=== PATIENT | female | born 1975 | race Caucasian/White ===

== ENCOUNTER 2016-06-10 13:35 | Inpatient (IN) | payer OTHER ==
[~2016-06-10] VITALS: Ht 157.5 cm; Wt 79.9 kg
[2016-06-10 15:30] VITALS: BP 115/57; PULSE 83; RESP 20
[2016-06-10 15:42] VITALS: Ht 157.5 cm; Wt 79.9 kg
[2016-06-10] MEDS ORDERED: BISACODYL (EC) 5 MG TAB PO PRN (17:00)
[2016-06-10] MEDS ORDERED: CEFTRIAXONE 1 GM/50 ML (PMX) 50 ML IVPB SCH (17:00)
[2016-06-10] MEDS ORDERED: NACL 0.9% 3 ML SYG IV SCH (17:00)
[2016-06-10] MEDS ORDERED: MAGNESIUM HYDROXIDE 30ML CUP PO PRN (17:00)
[2016-06-10] MEDS ORDERED: ONDANSETRON 4 MG INJ IV PRN (17:00)
[2016-06-10] MEDS ORDERED: HYDROCODONE/APAP (5/325) TAB PO PRN (17:00)
[2016-06-10] MEDS: SOD CHLORIDE 0.9% 1,000 ML IV SCH (17:30)
[2016-06-10 18:15] LABS: BASOPHILS % 0.1 % (0.0-2.0); EOSINOPHILS # 0.1 10^3/ul (0.0-0.5); EOSINOPHILS % 0.4 % (0.0-7.0); HEMATOCRIT 34.6 % (37.0-47.0); HEMOGLOBIN 11.9 g/dl (12.0-16.0); LYMPHOCYTES # 1.5 10^3/ul (0.8-2.9); LYMPHOCYTES % 11.3 % (15.0-51.0); MEAN CORPUSCULAR HEMOGLOBIN 29.1 pg (29.0-33.0); MEAN CORPUSCULAR HGB CONC 34.5 g/dl (32.0-37.0); MEAN CORPUSCULAR VOLUME 84.5 fl (82.0-101.0); MEAN PLATELET VOLUME 9.6 fl (7.4-10.4); MONOCYTE # 0.5 10^3/ul (0.3-0.9); MONOCYTES % 3.9 % (0.0-11.0); NEUTROPHILS % 84.3 % (39.0-77.0); PLATELET COUNT 159 10^3/UL (140-440); UNCORRECTED WBC 13.1 10^3/ul (4.8-10.8); WHITE BLOOD COUNT 13.1 10^3/ul (4.8-10.8)
[2016-06-10 18:17] LABS: CONDITION 1
[2016-06-10 18:26] LABS: ALBUMIN 3.5 g/dl (3.3-4.9)
[2016-06-10 18:27] LABS: POTASSIUM 3.4 mmol/L (3.5-5.1)
[2016-06-10 18:29] LABS: BILIRUBIN,INDIRECT 0.4 mg/dl (0-1.1); BILIRUBIN,TOTAL 0.4 mg/dl (0.2-1.3); CREATININE 0.67 mg/dl (0.44-1.00)
[2016-06-10 18:30] LABS: ALBUMIN/GLOBULIN RATIO 0.94; CALCIUM 8.1 mg/dl (8.4-10.2); MAGNESIUM 2.1 mg/dl (1.7-2.5); PHOSPHORUS 3.1 mg/dl (2.5-4.9); TOTAL PROTEIN 7.2 g/dl (6.1-8.1)
[2016-06-10] MEDS: morphine 2 MG INJ IV PRN (18:52)
[2016-06-10 19:01] LABS: THYROID STIMULATING HORMONE 2.22 MIU/L (0.465-4.680)
[2016-06-10 19:43] VITALS: BP 126/57; RESP 20
[2016-06-10] MEDS ORDERED: VITAMIN A & D 5 GM OINT PACKET TOP ONE (19:53)
[2016-06-10] MEDS: FAMOTIDINE 20 MG TAB PO SCH (20:54)
[2016-06-10 21:40] LABS: ADD UMIC YES; URINE BILIRUBIN (Dip) NEGATIVE (NEGATIVE); URINE BLOOD (Dip) 3+ (NEGATIVE); URINE COLOR YELLOW (YELLOW); URINE GLUCOSE (Dip) NEGATIVE (NEGATIVE); URINE KETONES (Dip) NEGATIVE (NEGATIVE); URINE LEUKOCYTE ESTERASE (Dip) TRACE (NEGATIVE); URINE NITRITE (Dip) NEGATIVE (NEGATIVE); URINE TOTAL PROTEIN (Dip) 2+ (NEGATIVE); URINE UROBILINOGEN (Dip) 0.2 E.U./dL (0.1-1.0)
[2016-06-10 21:47] LABS: BACTERIA,URINE MODERATE; SQUAMOUS EPITHELIAL CELL,UR MANY
[2016-06-11] MEDS: SOD CHLORIDE 0.9% 1,000 ML IV SCH ×3 (02:53→18:06)
[2016-06-11] MEDS: morphine 2 MG INJ IV PRN ×2 (03:04→13:46)
[2016-06-11 06:57] LABS: ALBUMIN 2.9 g/dl (3.3-4.9)
[2016-06-11 06:58] LABS: POTASSIUM 3.6 mmol/L (3.5-5.1)
[2016-06-11 07:00] LABS: ALBUMIN/GLOBULIN RATIO 0.8; BILIRUBIN,INDIRECT 0.3 mg/dl (0-1.1); BILIRUBIN,TOTAL 0.3 mg/dl (0.2-1.3); CALCIUM 8.1 mg/dl (8.4-10.2); CREATININE 0.61 mg/dl (0.44-1.00); TOTAL PROTEIN 6.5 g/dl (6.1-8.1)
[2016-06-11 07:05] LABS: EOSINOPHILS # 0.1 10^3/ul (0.0-0.5); EOSINOPHILS % 0.7 % (0.0-7.0); HEMATOCRIT 30.6 % (37.0-47.0); HEMOGLOBIN 10.8 g/dl (12.0-16.0); LYMPHOCYTES # 1.3 10^3/ul (0.8-2.9); LYMPHOCYTES % 13.3 % (15.0-51.0); MEAN CORPUSCULAR HEMOGLOBIN 29.7 pg (29.0-33.0); MEAN CORPUSCULAR HGB CONC 35.4 g/dl (32.0-37.0); MEAN CORPUSCULAR VOLUME 83.7 fl (82.0-101.0); MEAN PLATELET VOLUME 10.1 fl (7.4-10.4); MONOCYTE # 1.1 10^3/ul (0.3-0.9); MONOCYTES % 10.8 % (0.0-11.0); NEUTROPHIL # 7.5 10^3/ul (1.6-7.5); NEUTROPHILS % 75.2 % (39.0-77.0); PLATELET COUNT 152 10^3/UL (140-440); RED BLOOD COUNT 3.65 10^6/ul (4.20-5.40); RED CELL DISTRIBUTION WIDTH 13.2 % (11.5-14.5)
[2016-06-11 07:08] LABS: CONDITION 1
[2016-06-11 07:28] LABS: CHOL/HDL RATIO 3.6 RATIO; PHOSPHORUS 2.5 mg/dl (2.5-4.9)
[2016-06-11 08:02] VITALS: BP 136/64; RESP 18
--- NOTE | 2016-06-11 08:39 | HP ---
DATE OF ADMISSION: 06/10/2016 TIME OF EVALUATION: 1630. REASON FOR ADMISSION: Transfer from outside facility because of nephrolithiasis and right hydronephrosis. CONSULTANTS: Dr. Magan Blount, Urology. HISTORY OF PRESENT ILLNESS: This is a 40-year-old female patient with a past medical history of nephrolithiasis who denies any other significant past medical history, who went to [facility] because of right-sided flank pain, malaise, and dyspnea. The patient verbalized that she was also having dark colored urine. She has a prior history of nephrolithiasis and she was suspecting another kidney stone, and hence she started drinking large quantities of water. The patient attributes to her dyspnea secondary to fluid overload. The patient denied any fevers or chills. She denied any hematuria or dysuria. However, the patient was complaining of foul-smelling urine. She denied any nausea, vomiting, diarrhea, constipation, hematochezia, melena or hematemesis. In the emergency room at [facility], the patient was noticed to have elevated D-dimer. Consequently, the patient underwent a CT angiogram of the chest that was negative for any central or peripheral pulmonary embolism. The patient also underwent a CT scan of the abdomen and pelvis that showed mild right hydroureteronephrosis with submillimeter calculus at the ureterovesical junction with a punctate nonobstructing right renal calculi. The CT of the pelvis also showed a complex cystic mass of the left ovary, and enlarged liver. The patient was noticed to have leukocytosis. The patient's urinalysis showed 3+ leukocyte esterase, and positive nitrite with urine microscopic WBC greater than 100. The patient was treated with IV normal saline. The patient was transported to [facility] because of insurance reasons. PAST MEDICAL HISTORY: Nephrolithiasis. PAST SURGICAL HISTORY: x2, tubal surgery, adenoidectomy. HOME MEDICATIONS: None. ALLERGIES: SHELLFISH. SOCIAL HISTORY: The patient lives at home with her family. The patient is a prior smoker. Denies any use of alcohol or illicit drugs. FAMILY HISTORY: Not pertinent of the patient's history of present illness. Positive family history of nephrolithiasis. REVIEW OF SYSTEMS: A 12-point review of systems were made the review of systems were negative other than what is mentioned in history of present illness. PHYSICAL EXAMINATION: VITAL SIGNS: Temperature 97.8, pulse rate 80, respiratory rate 20, blood pressure 115/57, oxygen saturation 98% on room air. GENERAL: This is a slightly obese female patient lying in bed in no apparent distress. HEENT: Head normocephalic and atraumatic. Eyes: Anicteric sclerae. Conjunctivae clear. ENT: Nasal septum is midline. Oral mucosa is dry. NECK: Supple. No JVD noticed. RESPIRATORY: Bilaterally clear to auscultation. No adventitious breath sounds heard. No use of accessory muscles of respiration. CARDIAC: Regular rate and rhythm. No murmurs. ABDOMEN: Soft. Tenderness to touch in the right upper quadrant. No rebound tenderness or guarding. GENITOURINARY: No CVA tenderness on the right side. EXTREMITIES: No cyanosis, no clubbing, no edema. Peripheral pulses are palpable. NEUROLOGIC: The patient is awake, alert and oriented. Cranial nerves II through XII grossly intact. No focal weakness. LABORATORY AND DIAGNOSTIC DATA (From [facility]): WBC of 14.9, hemoglobin 12.6, hematocrit 37.6, platelet count 187. Sodium 134, potassium 3.5, chloride 99, carbon dioxide 26, glucose 167, BUN 10, creatinine 0.94, GFR 70, total protein 7.3, albumin 2.7, calcium 8.4, total bilirubin 1.2, AST 25, ALT 41, alkaline phosphatase 111, lipase 82, magnesium 2.1. D-dimer 1536. Urinalysis: Urine leukocyte esterase 3+. Urine nitrite positive. Urine microscopic WBC greater than 100. Chest x-ray. Normal frontal chest x-ray. CT scan of the abdomen and pelvis without contrast. Mild right hydroureteral nephrolithiasis with subcentimeter calculus of the ureterovesicular junction. Punctate nonobstructing right renal calculi. Complex cystic mass of left ovary. Enlarged fatty liver. CT angiogram of chest. Normal CT pulmonary angiogram. No evidence of pulmonary embolism, or aortic dissection, or lung infiltrate. IMPRESSION: This is a 40-year-old female patient with past medical history of nephrolithiasis who went to [facility] because of right-sided flank pain, malaise and dyspnea, who was found to have evidence of right-sided hydronephrosis and nephrolithiasis, who will be admitted here for further treatment and evaluation. ASSESSMENT AND PLAN: 1. Right pyelonephritis. The patient's CT scan of the abdomen and pelvis showed right perinephric stranding. The patient will be adequately treated with IV antibiotics. The patient will be adequately hydrated using IV fluids. 2. Nephrolithiasis. A Urology consult will be obtained. The patient will be provided with adequate pain control. The patient will be maintained on antibiotics. 3. Systemic inflammatory response syndrome with leukocytosis and febrile illness. Probably secondary to #1. Hurtado cultures will be obtained. The patient will be started on empiric antibiotics. 4. Obesity. BMI of 32.2 kg/m2. A fasting lipid panel will be obtained. A hemoglobin A1c will be obtained. The patient will be advised on weight reduction. 5. Complex cystic left ovarian mass, etiology unclear. We will obtain a pelvic ultrasound to further evaluate this. Plan. The patient will be admitted to inpatient medical/surgical floor. The patient will be started on a regular diet. The patient will be started on DVT prophylaxis and gastrointestinal prophylaxis. The patient will remain a FULL CODE. Activities will be as tolerated. The rest of the patient's management will be based on the clinical course, the results of diagnostic studies, and inputs from the consultants. Based on the patient's clinical presentation, she most probably requires at least one midnight's stay for further management and evaluation of her clinical presentation. The case and management of this patient was fully discussed with Dr. Dolan. Approximately 50 minutes was spent on the history and physical of this patient. JUAN FRANCISCO DOLAN MD, AM/BETH Conf#: [id number] DID#: [id number] MTDD
[2016-06-11] MEDS: FAMOTIDINE 20 MG TAB PO SCH ×2 (08:53→20:04)
--- NOTE | 2016-06-11 09:32 | RADRPT ---
PROCEDURE: US Pelvis. CLINICAL INDICATION: abdominal pain TECHNIQUE: Multiple sonographic images of the pelvis were obtained utilizing a transabdominal and endovaginal technique. The images were reviewed on a PACS workstation. COMPARISON: None. FINDINGS: The uterus is visualized and measures 7.9 x 4.7 x 5.7 cm in size. The endometrial echo complex is n ormal and measures 7 mm. There is no evidence for free fluid. The right ovary is not visualized. . The left ovary has a normal echotexture and measures 5.8 x 4.4 x 2.5 cm in size with a adjacent ovar jorge l cysts measuring 2.6 and 2.7 cm in greatest dimensions. Normal left ovarian blood flow . No adnex al masses are noted. IMPRESSION: 1. The right ovary was not visualized. The left ovary demonstrates 2 adjacent cysts with the large st measuring 2.7 cm in greatest dimension. 2. The remaining intrapelvic contents are unremarkable. RPTAT:AAJJ Physician Lucas Date Time Electronically viewed and signed by Physician Lucas on 06/11/2016 09:32 SCHUYLER/
--- NOTE | 2016-06-11 09:34 | RADRPT ---
PROCEDURE: XR Abdomen. CLINICAL INDICATION: SBO TECHNIQUE: AP abdomen x-ray. COMPARISON: None. FINDINGS: The bowel gas pattern is normal. There is no evidence of free air or obstruction. 3 x 6 mm calculus overlying the right UVJ. Correlate with clinical presentation and or CT findings. There are no abno rmal calcifications overlying the urinary tracts. The osseus structures are unremarkable. IMPRESSION: 1. Right 6 x 3 mm calcification overlying the ureterovesicular junction. Correlate clinically for obstructing calculus. Rule RPTAT:AAJJ Steve Todd Physician Date Time Electronically viewed and signed by Physician Lucas on 06/11/2016 09:34 SCHUYLER/
[2016-06-11] MEDS: CEFTRIAXONE 1 GM/50 ML (PMX) 50 ML IVPB SCH (09:56)
--- NOTE | 2016-06-11 12:20 | PN ---
Date/Time of Note Date/Time of Note DATE: 06/11/16 TIME: 12:20 Assessment/Plan VTE Prophylaxis VTE Prophylaxis Intervention: SCD's Lines/Catheters IV [facility]ter Type (from [facility]): Peripheral IV Urinary Cath still in place: No Assessment/Plan Chief Complaint/Hosp Course 1. Right pyelonephritis. The patient's CT scan of the abdomen and pelvis showed right perinephric stranding. Continue antibiotics. Urine culture negative so far. Continue IV hydration. 2. Nephrolithiasis. Appreciate urology recommendations. Continue pain control. Continue IV hydration. 3. Systemic inflammatory response syndrome with leukocytosis and fever. Most probably secondary to #1. Hurtado cultures pending. Continue empiric antibiotics. 4. Obesity. BMI of 32.2 kg/m2. Will advise weight reduction. 5. Multiple left ovarian cyst. Needs outpatient follow-up. 6. Fluids, electrolytes, and nutrition. Regular diet as tolerated. Continue IV fluids. 7. DVT prophylaxis. Bilateral sequential compression devices. 8. Gastrointestinal prophylaxis. Histamine 2 receptor blockers. 9. Plan. Continue pain control. Continue IV hydration. Continue antibiotics. Await further recommendations from urology. Case discussed with Dr. Puente. Problems: Subjective 24 Hr Interval Summary Free Text/Dictation Had a febrile episode in the AM. Complains of abdominal pain. Exam/Review of Systems Vital Signs Vitals Vital Signs Date Time Temp Pulse Resp B/P Pulse Ox O2 Delivery O2 Flow Rate FiO2 06/11/16 08:02 98.5 105 18 136/64 97 06/10/16 15:30 Room Air Intake and Output 06/10/16 06/10/16 06/11/16 14:59 22:59 06:59 Intake Total 500 ml 1500 ml Balance 500 ml 1500 ml Exam GENERAL: This is a slightly obese female patient lying in bed in no apparent distress. HEENT: Head normocephalic and atraumatic. Eyes: Anicteric sclerae. Conjunctivae clear. ENT: Nasal septum is midline. Oral mucosa is dry. NECK: Supple. No JVD noticed. RESPIRATORY: Bilaterally clear to auscultation. No adventitious breath sounds heard. No use of accessory muscles of respiration. CARDIAC: Regular rate and rhythm. No murmurs. ABDOMEN: Soft. Tenderness to touch in the right upper quadrant. No rebound tenderness or guarding. GENITOURINARY: No CVA tenderness on the right side. EXTREMITIES: No cyanosis, no clubbing, no edema. Peripheral pulses are palpable. NEUROLOGIC: The patient is awake, alert and oriented. Cranial nerves II through XII grossly intact. No focal weakness. Results Result Diagram: 06/11/16 0508 06/11/16 0508 Results 24 hrs Laboratory Tests Test 06/10/16 17:40 06/10/16 18:22 06/11/16 05:08 Alanine Aminotransferase (ALT/SGPT) 49 52 Albumin 3.5 2.9 L Albumin/Globulin Ratio 0.94 0.80 Alkaline Phosphatase 134 H 129 H Anion Gap 17 H 12 Aspartate Amino Transf (AST/SGOT) 30 28 Basophils # 0.0 0.0 Basophils % 0.1 0.0 Blood Urea Nitrogen 10 9 Calcium Level 8.1 L 8.1 L Carbon Dioxide Level 25 25 Chloride Level 101 104 Creatinine 0.67 0.61 Direct Bilirubin 0.00 0.00 Eosinophils # 0.1 0.1 Eosinophils % 0.4 0.7 Free Thyroxine 0.84 Globulin 3.70 H 3.60 H Glucose Level 173 152 Hematocrit 34.6 L 30.6 L Hemoglobin 11.9 L 10.8 L Hemoglobin A1c 5.5 Indirect Bilirubin 0.4 0.3 Lactic Acid Level 2.5 H 1.1 Lymphocytes # 1.5 1.3 Lymphocytes % 11.3 L 13.3 L Magnesium Level 2.1 2.0 Mean Corpuscular Hemoglobin 29.1 29.7 Mean Corpuscular Hemoglobin Concent 34.5 35.4 Mean Corpuscular Volume 84.5 83.7 Mean Platelet Volume 9.6 10.1 Monocytes # 0.5 1.1 H Monocytes % 3.9 10.8 Neutrophils # 11.0 H 7.5 Neutrophils % 84.3 H 75.2 Nucleated Red Blood Cells # 0.0 0.0 Nucleated Red Blood Cells % 0.0 0.0 Phosphorus Level 3.1 2.5 Platelet Count 159 152 Potassium Level 3.4 L 3.6 Red Blood Count 4.10 L 3.65 L Red Cell Distribution Width 13.0 13.2 Serum HCG, Qualitative NEGATIVE Sodium Level 140 137 Thyroid Stimulating Hormone (TSH) 2.220 Total Bilirubin 0.4 0.3 Total Protein 7.2 6.5 White Blood Count 13.1 H 10.0 # Urine Bacteria MODERATE Urine Bilirubin NEGATIVE Urine Clarity CLEAR Urine Color YELLOW Urine Glucose NEGATIVE Urine Hemoglobin 3+ H Urine Ketones NEGATIVE Urine Leukocyte Esterase TRACE H Urine Microscopic RBC 10-25 Urine Microscopic WBC >50 Urine Nitrite NEGATIVE Urine Specific Perry 1.020 Urine Squamous Epithelial Cells MANY Urine Total Protein 2+ H Urine Urobilinogen 0.2 E.U./dL Urine pH 6.0 Cholesterol Level 84 L Cholesterol/HDL Ratio 3.6 HDL Cholesterol 23 L LDL Cholesterol, Calculated 44 Triglycerides Level 83 Medications Medications Current Medications Influenza Virus Vaccine 0.5 ml 0.5 ml ONCE ONCE IM* ; Start 06/12/16 at 09:00; Stop 06/12/16 at 09:01 Sodium Chloride 1,000 ml @ 125 mls/hr Q8H IV Last administered on 06/11/16 10 :03; Admin Dose 125 MLS/HR; Start 06/10/16 at 16:36 Ceftriaxone Sodium (Rocephin) 50 ml @ 100 mls/hr Q24H IVPB Last administered on 06/11/16 09:56; Admin Dose 100 MLS/HR; Start 06/11/16 at 10:00 Ondansetron HCl (Zofran Inj) 4 mg Q6H PRN IV NAUSEA AND/OR VOMITING; Start at 17:00 Acetaminophen (Tylenol Tab) 650 mg Q6H PRN PO PAIN LEVEL 1-3 OR FEVER; Start at 17:00 Acetaminophen/ Hydrocodone Bitart ([place] (5/325)) 1 tab Q6H PRN PO MODERATE PAIN LEVEL 4-6; Start 06/10/16 at 17:00 Morphine Sulfate (morphine) 2 mg Q4H PRN IV SEVERE PAIN LEVEL 7-10 Last administered on 06/11/16 03:04; Admin Dose 2 MG; Start 06/10/16 at 17:00 Magnesium Hydroxide (Milk Of Mag) 30 ml DAILY PRN PO CONSTIPATION; Start at 17:00 Bisacodyl (Dulcolax) 5 mg DAILY PRN PO CONSTIPATION; Start 06/10/16 at 17:00 Famotidine (Pepcid) 20 mg Q12 PO Last administered on 06/11/16 08:53; Admin Dose 20 MG; Start 06/10/16 at 21:00 JUAN FRANCISCO ROSARIO NP Jun 11, 2016 12:20
[2016-06-11 19:28] VITALS: BP 140/89; RESP 20
[2016-06-11] MEDS ORDERED: TAMSULOSIN (SR) 0.4 MG CAP PO ONE (19:30)
--- NOTE | 2016-06-11 20:31 | CONS ---
DATE OF ADMISSION: 06/10/2016 DATE OF CONSULTATION: 06/11/2016 REQUESTING PHYSICIAN: Mario Alberto Puente MD Dear Dr. Puente: Thank you for asking me to see this patient in urological consultation. HISTORY OF PRESENT ILLNESS: This is a 40-year-old female who initially presented to [facility] complaining of right flank pain, and the patient underwent a CT scan of the abdomen and pelvis over there, and that showed a 7 mm stone at the right ureterovesical junction, and because of insura nce reasons, the patient was transferred to [facility] for further care. The patient state s that she had no nausea or vomiting, no diarrhea, no constipation, but she passed a big kidney ston e about 6 years ago. She is a 2, para 2, two C-sections. ALLERGIES: THE PATIENT IS ALLERGIC TO SHELLFISH. SOCIAL HISTORY: She does not smoke. She was a smoker before. She does not drink any alcohol, and there is no history of drug abuse. FAMILY HISTORY: There is a family history of kidney stones, and she just lost her mother, and her m other had kidney stones. PAST MEDICAL HISTORY: There is no other medical history. The patient at the present feels like when she has the urge to urinate, she urinates a lot of urine, and then a few minutes later she urinates a lot of urine as well. PHYSICAL EXAMINATION: GENERAL: A 40-year-old female. She weighs 79.9 kg. She is 62 inches tall. VITAL SIGNS: Her temperature is 98.5, respiration is 18, pulse is 105, the blood pressure 135/64. HEAD AND NECK: Unremarkable. There is no cervical adenopathy. ABDOMEN: She is tender in the right lower quadrant and more sensitive in the right flank area when compared to the left side. There is no abdominal mass palpable. GENITOURINARY: The patient does have her period at the present time, so no pelvic exam was done. MEDICATIONS: The medications that she is on include: 1. Ceftriaxone. 2. Pepcid. 3. Zofran p.r.n. 4. Albertson p.r.n. 5. Morphine p.r.n. 6. Milk of magnesia p.r.n. 7. Dulcolax p.r.n. LABORATORY DATA: Her CBC shows a white count of 10.0; on admission it was 13.1. Hemoglobin 10.8. The BUN is 9, creatinine 0.61. Electrolytes are normal. The serum hCG is negative. Urinalysis is more than 50 WBCs, 10 to 25 RBCs, 3+ occult blood. Urine culture: No growth in 24 hours. I did order earlier online a KUB for her, and that was done, and the radiologist read it as a 6 x 3 mm calcification overlying the right ureterovesicular junction, and that is probably the stone that she has. Also patient had pelvic ultrasound, and the right ovary was not visualized. The left ovary demonstr ates 2 adjacent cysts with the largest 2.7 cm in greatest dimension. The remaining intrapelvic cont ents are unremarkable. IMPRESSION: Distal right ureteral stone measuring about 7 mm in size. PLAN: Strain her urine and give her pain medications and also I would put her on Flomax as well and will try to schedule her for tomorrow for cystoscopy and ureteroscopy, laser lithotripsy and remova l of the stone and insertion of a JJ stent. I explained the procedure to her, the benefits, the ris ks and the alternative treatment. The patient is concerned that she does have her children with her ex-, and the children have to be driven to school, and she has nobody else to help her, and she was even asking whether she could go home, and I told her she could go home, but also she has to do arrangements for moving before 06/21 from her condo, so I told her basically what we could do is try to get the stone out so she could get back to her normal life, but she will have to have a JJ s tent, and that would usually be left for about 3 days, and if she wants to go home, she may be able to go home, but then we do not know what time she will have pain again, and she will end in the ronald gency room, and that could happen even in the middle of whatever things she has to do. At the end, I will try to schedule her, and hopefully we could take care of the stone tomorrow for her, and then she could be discharged after that. Dictated By: LILIA WARD/BETH Conf#: [id number] DID#: [id number]
[2016-06-11] MEDS: ACETAMINOPHEN 325 MG TAB PO PRN (21:57)
[2016-06-12] MEDS: SOD CHLORIDE 0.9% 1,000 ML IV SCH ×2 (05:46→08:36)
[2016-06-12 05:58] LABS: BASOPHILS % 0.3 % (0.0-2.0); EOSINOPHILS # 0.2 10^3/ul (0.0-0.5); EOSINOPHILS % 2.7 % (0.0-7.0); HEMATOCRIT 31.8 % (37.0-47.0); HEMOGLOBIN 10.9 g/dl (12.0-16.0); LYMPHOCYTES # 1.7 10^3/ul (0.8-2.9); LYMPHOCYTES % 27.5 % (15.0-51.0); MEAN CORPUSCULAR HEMOGLOBIN 29.2 pg (29.0-33.0); MEAN CORPUSCULAR HGB CONC 34.5 g/dl (32.0-37.0); MEAN CORPUSCULAR VOLUME 84.6 fl (82.0-101.0); MEAN PLATELET VOLUME 9.8 fl (7.4-10.4); MONOCYTE # 0.7 10^3/ul (0.3-0.9); MONOCYTES % 12.1 % (0.0-11.0); NEUTROPHIL # 3.5 10^3/ul (1.6-7.5); NEUTROPHILS % 57.4 % (39.0-77.0); PLATELET COUNT 150 10^3/UL (140-440); RED BLOOD COUNT 3.75 10^6/ul (4.20-5.40); RED CELL DISTRIBUTION WIDTH 13.3 % (11.5-14.5); UNCORRECTED WBC 6.1 10^3/ul (4.8-10.8); WHITE BLOOD COUNT 6.1 10^3/ul (4.8-10.8)
[2016-06-12 06:03] LABS: CONDITION 1
[2016-06-12 06:07] LABS: POTASSIUM 3.4 mmol/L (3.5-5.1)
[2016-06-12 06:09] LABS: CREATININE 0.57 mg/dl (0.44-1.00)
[2016-06-12 06:10] LABS: CALCIUM 8.6 mg/dl (8.4-10.2); INR 0.99; PROTIME 13.1 Sec (12.2-14.2)
[2016-06-12 06:11] LABS: PARTIAL THROMBOPLASTIN TIME 38.3 Sec (25.0-35.0)
[2016-06-12 06:15] LABS: MAGNESIUM 1.9 mg/dl (1.7-2.5)
[2016-06-12 06:16] LABS: PHOSPHORUS 2.8 mg/dl (2.5-4.9)
[2016-06-12 07:35] VITALS: BP 133/89; RESP 20
[2016-06-12] MEDS: FAMOTIDINE 20 MG TAB PO SCH (08:10)
[2016-06-12] MEDS: ACETAMINOPHEN 325 MG TAB PO PRN (08:10)
[2016-06-12] MEDS ORDERED: INFLUENZA VIRUS VACCINE 0.5 ML SYG IM* ONE (09:00)
--- NOTE | 2016-06-12 09:58 | RADRPT ---
PROCEDURE: XR Abdomen. CLINICAL INDICATION: Right ureteral calculus. TECHNIQUE: AP abdomen x-ray. COMPARISON: KUB 06/11/2016 FINDINGS: The bowel gas pattern is normal. There is no evidence of free air or obstruction. Stable appearance of 6 x 3 mm calcification proximal to the right UVJ. Compatible with known renal stone. CT correla tion is recommended. The osseus structures are unremarkable. IMPRESSION: 1. Stable position of right UVJ calculus. RPTAT:AAJJ Steve Todd Physician Date Time Electronically viewed and signed by Steve Todd Physician on 06/12/2016 09:57 SCHUYLER/
[2016-06-12] MEDS: CEFTRIAXONE 1 GM/50 ML (PMX) 50 ML IVPB SCH (10:10)
[2016-06-12] MEDS ORDERED: TAMSULOSIN (SR) 0.4 MG CAP PO SCH (21:00)
--- NOTE | 2016-06-13 11:31 | DS ---
DATE OF ADMISSION: 06/10/2016 DATE OF DISCHARGE: 06/12/2016 ____ Left against medical advice. ADMITTING DIAGNOSES: 1. Right pyelonephritis. 2. Nephrolithiasis. 3. Systemic inflammatory response syndrome with leukocytosis and fever. 4. Obesity. 5. Left ovarian cyst. CONSULTATIONS: Dr. Magan Blount, neurology. HOSPITAL COURSE: This is a 40-year-old female patient with past medical history of nephrolithiasis who denies any other significant past medical history who went to [facility] and [facility] because of right-sided flank pain, malaise and dyspnea. The patient verbalized that she was daniels ving dark-colored urine. She has a prior history of nephrolithiasis and she was suspecting another kidney stone and hence she started drinking large quantities of water. The patient attributes her d yspnea secondary to fluid overload. The patient denied any fevers or chills. She denied any hematu umm or dysuria. However, the patient was complaining of foul-smelling urine. She denied any nausea , vomiting, diarrhea, constipation, hematochezia, melena, or hemetemesis. In the emergency room at [facility], the patient was noticed to have elevated D-dimer. Consequently, the patient u nderwent a CT angiogram of the chest that was negative for any central or peripheral pulmonary embol ism. The patient also underwent a CT scan of the abdomen and pelvis that showed mild right hydroure teronephrosis with a subcentimeter calculus at the ureterovesical junction with punctate nonobstruct ing right renal calculi. The patient's urinalysis showed 3+ leukocyte esterase and positive nitrite with microscopic WBCs greater than 100. The patient was transferred to [facility] because of insurance purposes. The patient was admitted to inpatient medical/surgical floor. The patient was started on a regular diet. The patient was started on empiric antibiotics. Pancultures were ordered. A urology consult was obtained. Urology evaluated the patient. The patient underwent an abdominal x-ray that showed right ureterovesical junction 6 x 3 mm calcification. Hence, urology recommended a cystoscopy; how ever, the patient did not want to stay further in the hospital stating that she has to take care of her family. The patient left the hospital against medical advice. The patient was informed about t he consequences of leaving the hospital against medical advice including the possibility of . Nevertheless, the patient left the hospital against medical advice. No discharge planning was done since the patient left the hospital against medical advice. PERTINENT LABORATORY AND DIAGNOSTIC DATA: 1. Pelvic ultrasound: The right ovary was not visualized. The left ovary demonstrates 2 adjacent cysts with the largest measuring 2.7 cm in greatest dimension. The remaining intrapelvic contents a re unremarkable. 2. Abdominal x-ray on 06/11/2016: Right 6 x 3 mm calcification overlying the ureterovesical juncti on. 3. A repeat abdominal x-ray on 06/12/2016: Stable position of the UVJ calculus. 4. Blood culture x2 negative. 5. Urine culture x1 negative. 6. Latest CBC: WBC 6.1, hemoglobin ____, hematocrit ____, platelet count 150. 7. Latest BMP: Sodium ____, potassium 3.4, chloride 106, carbon dioxide 29, anion gap 13, BUN 7, c reatinine ____, glucose 100, calcium 8.6. ____ 2.8, magnesium 1.9. 8. Hemoglobin A1c 5.5. 9. Fasting lipid panel: Triglycerides 83, total cholesterol 84, LDL 44, HDL 23. At this time, I would like to thank Dr. Blount for seeing the patient and providing clinical recomm endations. The case and management of this patient was fully discussed with Dr. Dolan. Dictated By: JUAN FRANCISCO ROSARIO COMMERCIAL UNDERWRITER for TRES DOLAN MD, AM/NTS Conf#: [id number] DID#: [id number]
== END 2016-06-12 13:40 | disposition left against medical advice (07) | DRG 690 ==
LOC: PP2 15:09
PROVIDERS: ADMIT Family Medicine; ATTEND Family Medicine
DX: N12 Tubulo-interstitial nephritis, not specified as acute or chronic (principal); R65.10 Systemic inflammatory response syndrome (SIRS) of non-infectious origin without acute organ dysfunction; N20.0 Calculus of kidney; E66.9 Obesity, unspecified; Z68.32 Body mass index [BMI] 32.0-32.9, adult; N83.202 Unspecified ovarian cyst, left side; R00.0 Tachycardia, unspecified
CPT/HCPCS: 74000; 76830; 76856; 80048; 80053; 80061; 81001; 81003; 83036; 83605; 83735; 84100; 84439; 84443; 84703; 85025; 85610; 85730; 87040; 87081; 87086; 90686; J0696; J2270; J7030

== ENCOUNTER 2017-05-03 10:13 | Day surgery (SDC) | payer OTHER ==
[~2017-05-03] VITALS: Ht 157.5 cm; Wt 88.1 kg
[2017-05-03] VITALS (14 sets, daily range): BP systolic 138–205; BP diastolic 68–98; PULSE 78–102; RESP 16–22; Ht 157.5 cm; Wt 88.1 kg
[~2017-05-03 10:13] MED LIST: CEFAZOLIN 1 GM/50 ML (PMX) 50 ML IVPB SCH
[2017-05-03] MEDS ORDERED: CEFTRIAXONE 1 GM/NS 50 ML IVPB ONE (11:00)
[2017-05-03] MEDS ORDERED: AMLO-147 PO (11:09)
[2017-05-03] MEDS ORDERED: SERT50TA PO (11:09)
[2017-05-03] MEDS ORDERED: IOHEXOL 300MG/ML 30 ML BTL ONE (12:05)
--- NOTE | 2017-05-03 12:31 | HPN ---
Date/Time of Note Date/Time of Note DATE: 05/03/17 TIME: 12:31 Interval H&P Admission Note Pt. seen H&P reviewed: No system changes LILIA RIVAS MD May 03, 2017 12:31
[2017-05-03] MEDS ORDERED: MIDAZOLAM 1 MG/ML 2 ML INJ ONE (12:38)
[2017-05-03] MEDS ORDERED: morphine 10 MG INJ ONE (14:31)
[2017-05-03] MEDS ORDERED: LIDOCAINE 2% (SDV) 5 ML INJ ONE (14:56)
[2017-05-03] MEDS ORDERED: ONDANSETRON 4 MG INJ ONE (14:56)
[2017-05-03] MEDS ORDERED: ROCURONIUM 50 MG INJ ONE (14:56)
[2017-05-03] MEDS ORDERED: PROPOFOL 20 ML ONE (14:56)
[2017-05-03] MEDS ORDERED: HYDROCODONE/APAP (5/325) TAB PO PRN (15:00)
--- NOTE | 2017-05-03 15:09 | OPR ---
Date/Time of Note Date/Time of Note DATE: 05/03/17 TIME: 15:00 Operative Report Procedure Date: May 03, 2017 Preoperative Diagnosis Retained right ureteral JJ stent with calcification on the proximal curl in the kidney and a very large calcification, over 3 cm in size, on the distal curl in the bladder Postoperative Diagnosis Retained right ureteral JJ stent with calcification on the proximal curl in the kidney and a very large calcification, over 3 cm in size, on the distal curl in the bladder Operation/Procedure Performed Right extracorporeal shockwave lithotripsy to the proximal curl of the JJ stent in the right kidney ,cystolitholopaxy to the larger stone on the distal curl of the stent in the bladder, removal and replacement of right ureteral JJ stent, 6 Turkmen by 22 cm long Surgeon see signature line Wall Worker None Anesthesia Type: general Anesthesiologist: SHADIA VAUGHN MD Estimated Blood Loss: 0 - 10 ml's Transfusion none Specimen Fragments of bladder stones, urine from the bladder for culture and sensitivity , old JJ stent Grafts/Implants none Complications none Pt Condition Post Procedure: stable Disposition: PACU Indications Retained right ureteral JJ stent with calcification on the proximal curl in the kidney and a very large calcification, over 3 cm in size, on the distal curl in the bladder Procedure Description Patient was brought to the operating room. She was given general anesthesia and positioned in the supine position on the lithotripsy machine table. Timeout was done ,the patient was identified by her name, her birthdate and the procedure and the side of the procedure. The patient was given 1 g of ceftriaxone IV at the start of the procedure. Then the patient was positioned so the proximal curl of the JJ stent in the kidney is visualized on both screens of the lithotripsy machine. Then the electromagnetic shockwaves were delivered to the curl of the JJ stent. The position was rechecked irregularly and a total of 2400 shockwaves were given. The energy started from 2 and went up to 7. Once the ESWL was done the patient was repositioned in the lithotomy position then another timeout was done and the patient genital area was prepped and draped in the usual sterile manner. #21 Turkmen cystoscope sheath was introduced into the bladder and the distal curl of the JJ stent was visualized and it was all covered by a very large stone measuring over 3 cm in size. Then I used [id number] micron holmium laser fiber and broke the stone of the curl of the JJ stent. All the stone fragments were then irrigated out of the bladder and once there were no more stones and under fluoroscopy I grasped the distal end of the JJ stent and pulled it out while looking at the proximal curl in the kidney under fluoroscopy. The proximal curl did straighten up and I was able to pull the JJ stent intact. Then I reintroduced the cystoscope and made sure that there were no more stone fragments inside the bladder. I cannulated the right ureteral orifice and passed a 0.[address] up to the kidney and on the zip wire I advanced a 6 Turkmen by 22 cm long JJ stent. I had its proximal and curling into the kidney and the distal end curling into the bladder. The patient was then transferred to the recovery room in a stable and satisfactory condition. LILIA RIVAS MD May 03, 2017 15:09
[2017-05-03] MEDS ORDERED: hydrALAzine 20 MG INJ IV PRN (15:30)
[2017-05-03] MEDS ORDERED: LABETALOL HCL 20MG INJ IV PRN (15:30)
[2017-05-03] MEDS ORDERED: DIPHENHYDRAMINE 50 MG INJ IV PRN (15:30)
[2017-05-03] MEDS ORDERED: MEPERIDINE 25 MG INJ IV PRN (15:30)
[2017-05-03] MEDS ORDERED: HYDROmorphONE (0.2 MG/ML) 10ML SYG IV PRN ×2 (15:30)
[2017-05-03] MEDS ORDERED: FENTAnyl 50 MCG/ML VIAL IV PRN (15:30)
[2017-05-03] MEDS ORDERED: ONDANSETRON 4 MG INJ IV PRN (15:30)
--- NOTE | 2017-05-03 15:57 | RADRPT ---
PROCEDURE: X-ray fluoroscopy guidance CLINICAL INDICATION: Right ureteral stent placement. Fluoroscopic guidance. TECHNIQUE: Fluoroscopic guidance was utilized for an intraoperative procedure. COMPARISON: None available FINDINGS: Fluoroscopic guidance was utilized for and intraoperative procedure. 69.6 seconds of fluoroscopy palma e was utilized for the procedure. 8 x-ray images were obtained during the procedure in progress. Fin al images demonstrate a right ureteral stent in grossly appropriate location. IMPRESSION: X-ray fluoroscopic guidance utilized for intraoperative procedure. Right ureteral stent in grossly appropriate location. Please see procedure note for details. RPTAT: AA .Sachin Post MD, MD Date Time Electronically viewed and signed by .Sachin Post MD, MD on 05/03/2017 15:56 .P/
== END 2017-05-03 16:45 | disposition home or self-care (01) ==
LOC: SDS 10:13
PROVIDERS: ATTEND Urology
DX: N20.2 Calculus of kidney with calculus of ureter (principal); N21.0 Calculus in bladder; I10 Essential (primary) hypertension; Z72.0 Tobacco use
CPT/HCPCS: 50590; 74430; 87086; C2617; J0360; J0696; J2175; J2250; J2270; J2405; J3010; Z7512; Z7610; Q9967

== ENCOUNTER 2017-06-02 09:46 | Day surgery (SDC) | END 2017-06-02 15:40 | disposition home or self-care (01) ==